=== PATIENT | female | born 1945 | race Caucasian/White ===

== ENCOUNTER → 2017-04-13 | Outpatient (CLI) | payer MEDICARE ==
[~2017-04-13] MED LIST: CENTTAB PO; COUM2.5T11 PO; LEVO25TA5 PO; OCUVTAB4 PO; PERC5TAB6 PO; PRESCAP PO; SIMV10TA2 PO; VITA400T2 PO; caltrate OR; systane OU
[2017-04-13 12:48] LABS: MEAN CORPUSCULAR HEMOGLOBIN 31.4 pg (27.0-33.0); MEAN CORPUSCULAR HGB CONC 34.7 g/dl (32.0-36.5); MEAN CORPUSCULAR VOLUME 90.5 fl (80.0-96.0)
--- NOTE | 2017-04-13 12:55 | REP ---
PA and lateral chest: Comparison 05/13/2016. The lung scott are clear. The cardiac size is normal The milton, mediastinum, and bony thorax are unremarkable. Impression: Negative PA and lateral chest. . There is no interval change. Signed by Dale Del Rio MD 04/13/2017 12:46 P
[2017-04-13 12:57] LABS: INR 0.99
[2017-04-13 13:47] LABS: ALBUMIN/GLOBULIN RATIO 1.11 (1.00-1.93); ALKALINE PHOSPHATASE 87 U/L (45-117); ALT/SGPT 75 U/L (12-78); ANION GAP 5 MEQ/L (8-16); AST/SGOT 51 U/L (15-37); BILIRUBIN,TOTAL 0.4 MG/DL (0.2-1.0); BLOOD UREA NITROGEN 9 MG/DL (7-18); CALCIUM LEVEL 10.5 MG/DL (8.8-10.2); CARBON DIOXIDE LEVEL 32 MEQ/L (21-32); CHLORIDE LEVEL 98 MEQ/L (98-107); CREATININE FOR GFR 0.74 MG/DL (0.55-1.02); GLOMERULAR FILTRATION RATE > 60.0 (>39); GLUCOSE, FASTING 235 MG/DL (83-110); POTASSIUM SERUM 4.2 MEQ/L (3.5-5.1); SODIUM LEVEL 135 MEQ/L (136-145); TOTAL PROTEIN 7.6 GM/DL (6.4-8.2)
--- NOTE | 2017-04-13 17:09 | ECGEPIP ---
Stationary ECG Study [facility] Test Date: 2017-04-13 Pat Name: RAUL CABRAL Department: Room: - Gender: F Summer Nanny: [facility] : 1945 Requested By: Bruno Ibanez Order Number: [id number] Reading MD: Rao Chang Measurements Intervals Rutledge Rate: 93 P: 51 SD: 161 QRS: -2 QRSD: 95 T: 31 QT: 326 QTc: 406 Interpretive Statements Normal sinus rhythm Left atrial enlargement Incomplete right bundle branch block Minor T-wave abnormalities No significant change since 04/27/2016 Electronically Signed On 04-13-2017 17:09:47 EDT by Rao Chang
== END ==
LOC: M ADMPAT 10:24
PROVIDERS: ATTEND Orthopaedic Surgery
DX: Z01.818 Encounter for other preprocedural examination (principal); M17.12 Unilateral primary osteoarthritis, left knee

== ENCOUNTER 2017-04-27 07:15 | Inpatient (IN) | payer MEDICARE ==
[2017-04-13 11:28] VITALS: BP 180/90
--- NOTE | 2017-04-25 13:14 | HPE ---
DATE OF ADMISSION: 04/27/2017 ATTENDING: Bruno Ibanez MD ADMISSION DIAGNOSIS: Osteoarthritis left knee. HISTORY: This is a pleasant 71-year-old female patient with progressively worsening left knee pain and stiffness. She has failed to improve with conservative management. She has elected for surgery for her continued symptoms. She has consented for a left total knee arthroplasty by Dr. Ibanez. X-rays of her left knee notable for end-stage degenerative changes of the left knee. ALLERGIES: LATEX. CURRENT MEDICATIONS: - Benadryl 25 mg two tablets by mouth as needed every 4 hours - Systane 0.4/0.0 3% two times per day. - levothyroxine 50 mcg one tablet once per day - Motrin as needed. She was counseled to discontinue that 5 days prior to surgery. - Zocor 10 mg one tablet once per day - aspirin 81 mg one tablet once per day. She also was told to discontinue that 5 days prior to surgery. - She also takes a daily multivitamin. MEDICAL HISTORY: Includes symptomatic osteoarthritis of the left knee, hypothyroidism, elevated cholesterol. PAST SURGICAL HISTORY: She has had a right total hip arthroplasty. SOCIAL HISTORY: She does not smoke. She does not use alcohol. FAMILY HISTORY: Noncontributory. REVIEW OF SYSTEMS: Denies fever or chills. Denies chest pain, shortness breath, or cough. Denies difficulty breathing. Denies abdominal pain. Denies nausea or vomiting. Denies recent upper respiratory infection (URI) or urinary tract infection (UTI) symptoms. Has persistent pain in her left knee with weightbearing activities. Examination today reveals an alert, well-nourished, well-developed female patient. She walks with a limping gait. She favors her left side. Examination of the left knee reveals skin to be intact. There is tenderness mainly along the medial joint line with some lateral and posterior tenderness, as well. The calf is soft, nontender to palpation. No irritability with hip range of motion. There is good knee range of motion with irritability at the extremes of range of motion. She can sensate light touch in the left leg. Is well-perfused left lower extremity. Neck is supple without adenopathy or jugular venous distention (JVD). Lungs are clear to auscultation without rales or wheeze. Heart: Regular rate and rhythm. Abdomen: Bowel sounds are present. Height 5 feet 11 inches, weight 219 pounds, temperature 97.9, blood pressure 144/89, pulse 80, respiration 18. LABORATORY DATA: WBC count of 11, RBC count of 4.5, hemoglobin 14.4, hematocrit 41.3. PT 13.2, INR 0.99. Her glucose is at 235, and her primary did mention that it was elevated but did not recommend treatment. BUN 9, creatinine 0.74. Sodium 135, potassium 4.2. Urinalysis had 1+ protein, trace leukocyte esterase, 3+ glucose, and she was treated by her urologist with a 10-day course of Bactrim that is due to be done in 2 days. Urine culture: No clinically significant growth. Nasal sinus cultures normal alvin. Chest x-ray: No acute cardiopulmonary disease process noted. Electrocardiogram (EKG) notable for a sinus rhythm. Sedimentation rate is 44. PLAN: She has consented for left total knee arthroplasty by Dr. Ibanez. DIAGNOSIS: Symptomatic osteoarthritis of the left knee.
[~2017-04-27] VITALS: Ht 147.3 cm; Wt 105.3 kg
[~2017-04-27 07:15] MED LIST changes: -COUM2.5T11 PO; +COUM2.5T17 PO; +PERC5TAB12 PO; -PERC5TAB6 PO
[2017-04-27] MEDS ORDERED: LR 1,000 ML IV SCH ×3 (07:30→13:45)
[2017-04-27] MEDS ORDERED: LR 1,000 ML IV ONE ×2 (07:30)
[2017-04-27] MEDS ORDERED: MIDAZOLAM INJ 2 MG/2 ML VIAL (J2250) As Ordered ONE ×2 (08:45→10:23)
[2017-04-27] MEDS ORDERED: fentaNYL 100 MCG/2 ML INJECTION (J3010) As Ordered ONE ×3 (08:45→11:20)
[2017-04-27] MEDS ORDERED: HumaLOG INSULIN (NovoLOG) PER UNIT As Ordered ONE ×2 (08:47→08:49)
[2017-04-27] MEDS ORDERED: HumaLOG INSULIN (NovoLOG) PER UNIT SC ONE (09:15)
[2017-04-27] MEDS ORDERED: TRANEXAMIC ACID 100 MG/ML 10ML VIAL As Ordered ONE (09:16)
[2017-04-27] MEDS ORDERED: ceFAZolin 1GM INJ (J0690) As Ordered ONE (09:17)
[2017-04-27] MEDS ORDERED: EPINEPHrine INJ 1 MG/ML 1ML AMP As Ordered ONE (09:17)
[2017-04-27] MEDS ORDERED: MIDAZOLAM INJ 2 MG/2 ML VIAL (J2250) IV ONE (09:30)
[2017-04-27] MEDS ORDERED: fentaNYL 100 MCG/2 ML INJECTION (J3010) IV ONE (09:30)
--- NOTE | 2017-04-27 09:52 | HPE ---
DATE OF ADMISSION: 04/27/2017 Patient seen and examined. She wished to go ahead with a left total knee arthroplasty. She understands the nature of this, the risk of bleeding, infection, damage to nerves, vessels, persistent pain, wear loosening, blood clots, medical problems, , among others. Preop medical clearance has been obtained.
[2017-04-27] MEDS ORDERED: BUPIVACAINE HCL 0.25% 30 ML VIAL As Ordered ONE (10:19)
[2017-04-27] MEDS ORDERED: LIDOCAINE 2% INJ 100 MG/5 ML SDV (FOR ANES.) As Ordered ONE (10:24)
[2017-04-27] MEDS ORDERED: ePHEDrine SULFATE 25 MG/5 ML(5MG/ML) SYRINGE As Ordered ONE (10:24)
[2017-04-27] MEDS ORDERED: PROPOFOL 200 MG/20 ML VIAL As Ordered ONE (10:24)
[2017-04-27] MEDS ORDERED: ROPIvacaine 0.5% 30 ML INJECTION (J2795) ONE (10:29)
[2017-04-27] MEDS ORDERED: dexameTHASONE 10 MG/1 ML VIAL PRES.FREE (J1100) ONE (10:29)
[2017-04-27] MEDS ORDERED: LIDOCAINE 1% MDV 20ML VIAL ONE (10:29)
[2017-04-27] MEDS ORDERED: HYDROmorphone HCL 1 MG/ML SYRINGE (J1170) IV PRN ×2 (11:45→13:45)
[2017-04-27] MEDS ORDERED: MORPHINE 1MG/ML IN 0.9% NACL 100ML IV BAG IV PRN (11:45)
[2017-04-27] MEDS ORDERED: ACETAMINOPHEN TAB 650MG DOSE (2X325MG) PO PRN (11:45)
[2017-04-27] MEDS ORDERED: FLEET ENEMA PR PRN (11:45)
[2017-04-27] MEDS ORDERED: PERCOCET 5MG/325MG TAB PO PRN ×2 (11:45→13:45)
[2017-04-27] MEDS ORDERED: PATIENT IS CURRENTLY ON AN ON-Q PAIN BUSTER PAIN RELIEF SYSTEM XX SCH (11:45)
[2017-04-27] MEDS ORDERED: diphenhydrAMINE INJ 50MG/ML VIAL (J1200) IV PRN (11:45)
[2017-04-27] MEDS ORDERED: fentaNYL 100 MCG/2 ML INJECTION (J3010) IV PRN ×2 (11:45→13:45)
[2017-04-27] MEDS ORDERED: NALBUPHINE HCL 10 MG/ML AMP (J2300) IV PRN (11:45)
[2017-04-27] MEDS ORDERED: EPIDURAL/PCA KEYS XX PRN (11:45)
[2017-04-27] MEDS ORDERED: NALOXONE INJ 0.4 MG/1 ML VIAL (J2310) IV PRN (11:45)
[2017-04-27] MEDS ORDERED: ONDANSETRON 4MG/2ML VIAL (J2405) IV PRN ×3 (11:45→13:45)
[2017-04-27 13:00] VITALS: BP 132/84
[2017-04-27 13:30] VITALS: BP 140/77
[2017-04-27 14:30] VITALS: BP 152/76
[2017-04-27 15:30] VITALS: BP 149/82
--- NOTE | 2017-04-27 16:20 | CR.PDOC ---
[facility] Consultation Consultation DATE OF CONSULTATION: 04/27/17 REFERRING PROVIDER: Santiago Luz M.D. ATTENDING PHYSICIAN: Dr. Ibanez REASON FOR CONSULTATION/CHIEF COMPLAINT: . Medical co-management HISTORY OF PRESENT ILLNESS: 71-year-old female with past medical history of dyslipidemia and hypothyroidism presents to [facility] for a left total knee replacement. At this time, the patient denies any acute complaints of fevers, chills, chest pain, shortness of breath, palpitations, abdominal pain, or any nausea/vomiting since diarrhea. The hospitalist service has been consulted for medical comanagement. ALLERGIES: Please see below. HOME MEDICATIONS: Please see below. PAST MEDICAL HISTORY: As noted above PAST SURGICAL HISTORY: Right total hip arthroplasty FAMILY HISTORY: Noncontributory SOCIAL HISTORY: Denies any alcohol, tobacco, or illicit drug use REVIEW OF SYSTEMS: 10 point review of systems negative unless otherwise specified in HPI PHYSICAL EXAMINATION: VITAL SIGNS: Please see below. GENERAL APPEARANCE: . Awake, alert, in no acute distress HEENT: . Normocephalic, atraumatic RESPIRATORY: . Clear to auscultation bilaterally CARDIOVASCULAR: . Normal rate, normal rhythm ABDOMEN: . Soft, nontender, nondistended EXTREMITIES: . Left knee noted to be wrapped in surgical dressing, range of motion limited secondary to recent surgery, neurovascularly intact distally LABORATORY DATA: Please see below. ASSESSMENT/PLAN: Status post left total knee replacement DVT prophylaxis and pain management as per primary team Hypothyroidism Continue levothyroxine Dyslipidemia Continue statin Vitamin D deficiency Continue vitamin D supplementation Vital Signs/I&O Vital Signs Date Time Temp Pulse Resp B/P (MAP) Pulse Ox O2 Delivery O2 Flow Rate FiO2 04/27/17 13:17 Nasal Cannula 2.0 04/27/17 13:11 16 04/27/17 12:25 86 156/87 (110) 04/27/17 12:21 96 04/27/17 12:10 97.4 04/27/17 11:01 100 Laboratory Data CBC/BMP Laboratory Tests 04/27/17 07:38 Allergies Coded Allergies: Unclassified Drugs (Verified Allergy, Intermediate, PRESERVATIVES- HIVES, 04/27/17) Latex (Unverified Allergy, Unknown, 05/11/16) Red Dye (Verified Adverse Reaction, Mild, CONTACT DERMATITIS, 04/13/17) Home Medications Scheduled (Preservision Areds) 1 Cap Cap, 1 CAP PO BID, (Reported) Cholecalciferol (Vitamin D) 400 Unit Tab, 200 UNIT PO DAILY, (Reported) Levothyroxine Sodium (Synthroid) 25 Mcg Tab, 50 MCG PO DAILY, (Reported) Multivitamins (Centrum Silver) 1 Tab Tab, 1 TAB PO DAILY, (Reported) Simvastatin (Simvastatin) 10 Mg Tab, 10 MG PO DAILY, (Reported) [caltrate] , 1 TAB OR DAILY, (Reported) SANTIAGO LUZ MD Apr 27, 2017 16:20
[2017-04-27 16:30] VITALS: BP 144/89
[2017-04-27] MEDS ORDERED: WARFARIN SOD 5 MG TAB PO SCH (17:00)
[2017-04-27] MEDS: LR 1,000 ML IV SCH ×2 (17:06→22:47)
[2017-04-27] MEDS: ONDANSETRON 4MG/2ML VIAL (J2405) IV PRN (19:04)
--- NOTE | 2017-04-27 20:22 | RO ---
DATE OF PROCEDURE: 04/27/2017 PREOPERATIVE DIAGNOSIS: Left knee osteoarthritis, obesity. POSTOPERATIVE DIAGNOSIS: Left knee osteoarthritis, obesity. PROCEDURE: Left total knee arthroplasty using a PFC rotating platform, size 2.5 femur, a size 2 tray, 12.5 polyethylene, 32 patellar button. SURGEON: Dr. Bruno Ibanez QUALITY ENG: Marco Antonio Pillai ANESTHESIA: Spinal. ESTIMATED BLOOD LOSS: Less than 50 mL. COMPLICATIONS: None. INDICATIONS: This is a 71-year-old woman who has had gradually worsening left knee pain. She wished to go ahead with surgical treatment, having failed conservative management. She understood the nature of the procedure, the risks of bleeding, infection, damage to nerves, vessels, persistent pain, wear, loosening, blood clots, medical problems, among others. DESCRIPTION OF PROCEDURE: The patient was taken to the operating room and placed in the supine position after spinal anesthesia was induced. The left lower extremity was prepped and draped in usual sterile fashion. Tourniquet was inflated. Time-out had been performed. I then created a longitudinal incision over the anterior aspect of the left knee. Sharp dissection was carried down through subcutaneous tissue. I then performed a medial parapatellar arthrotomy per routine, did a medial release and everted the patella, flexed the knee up. I did remove some of the fat pad for visualization. I then used the canal initiating reamer on the femoral side followed by the intramedullary guide set at 5 and 10 with 10 mm cut. This was pinned in place by the research lab assistant. I had also removed some bone spurs distally. We backed the cutting block off by 2 mm because her flexion contracture and the research lab assistant made the distal femoral cut in the usual fashion. I protected soft tissues. I sized the femur to be a 2.5. Drill holes were made in the end of the femur with the external rotation guide and then I pinned the 2.[address], made the remaining four cuts and removed excess bone. We then used the tibial alignment guide and placed the appropriate amount of posterior slope and valgus alignment in the tibia. This was pinned in place, and the guide I ended up setting at 12 mm off the high side, which after checking the alignment, I made the cut and took a very thin wafer off the medial side because she did have fairly deficient medial tibial plateau. I ended up having to slightly recut this because it was in a little bit valgus still, so I actually repinned the tibial tray in slightly less valgus, and I think part of it was the saw blade scythed on the medial side where it was so sclerotic. This provided excellent alignment and position of the cut. I then used a spacer to remove osteophytes from either side and soft tissue from either side of the knee, used the spacer block and the 12.5 seemed to have excellent alignment and stability in flexion and extension. I then sized the tibia to be a 2, drilled, broached and placed the trial components. The knee was put through a range of motion with a 12.5 polyethylene and excellent range of motion and stability were noted. I then freehand cut the patella removing about 4 mm of bone. It was pretty thin, but was able to preserve a good amount of thickness for the implant to be secured to. I then sized to be a 32, placed the drill holes, put the trial 32 patellar button on, put the knee through a range of motion and tracked very nicely and excellent stability and alignment noted. I then made the distal femoral holes with the drill. The research lab assistant prepared the bone cement in modern technique. I removed the instrumentation and irrigated the bony surfaces copiously, dried them carefully, cemented on the tibial tray, impacted it in place, removed excess bone cement, placed the polyethylene, cemented on the femoral component, removed excess bone cement and made sure that both components were well seated. Incidentally, the posterior cruciate ligament (PCL) was still intact throughout. The knee was brought out in extension. We cemented on the patellar component, held it in place until the bone cement hardened, having removed the excess bone cement. I then irrigated copiously, removed the patellar clamp and placed the TXA solution in the knee. I then closed the deep layer with some interrupted #1 Vicryl sutures and a running Stratafix suture in each direction with the research lab assistant helping. Watertight closure was noted. I irrigated, closed the subcu with #2-0 Vicryl and the skin with danielito. I inserted the PainBuster through the superolateral aspect of the knee in the usual fashion. Sterile dressing was applied. Tourniquet had been deflated. She was taken to recovery in stable condition. There were no known complications. The plan will be routine postop. The research lab assistant was instrumental in holding retractors, making one of the cuts, mixing the bone cement and wound closure. This case was coded as an unusually difficult case because the patient had morbid obesity with a body mass index (BMI) over 44, and this made the case significantly more challenging and took longer due to the size of her leg.
[2017-04-27 22:00] VITALS: BP 164/61
[2017-04-28 02:00] VITALS: BP 164/58
[2017-04-28] MEDS: LEVOTHYROXINE 50MCG TABLET (0.05MG) PO SCH (05:57)
[2017-04-28] MEDS: ONDANSETRON 4MG/2ML VIAL (J2405) IV PRN (05:57)
[2017-04-28 06:00] VITALS: BP 163/77
[2017-04-28 06:31] LABS: MEAN CORPUSCULAR VOLUME 91.6 fl (80.0-96.0); RED CELL DISTRIBUTION WIDTH 13.1 % (11.5-14.5); WHITE BLOOD COUNT 15.7 K/mm3 (4.0-10.0)
[2017-04-28 06:40] LABS: INR 1.73
[2017-04-28] MEDS ORDERED: ONDANSETRON 4 MG TAB (S0181) PO PRN (06:45)
[2017-04-28 07:49] LABS: ANION GAP 7 MEQ/L (8-16); BLOOD UREA NITROGEN 13 MG/DL (7-18); CALCIUM LEVEL 8.9 MG/DL (8.8-10.2); CARBON DIOXIDE LEVEL 30 MEQ/L (21-32); CHLORIDE LEVEL 101 MEQ/L (98-107); CREATININE FOR GFR 0.66 MG/DL (0.55-1.02); GLOMERULAR FILTRATION RATE > 60.0 (>39); GLUCOSE, FASTING 221 MG/DL (83-110); POTASSIUM SERUM 4.2 MEQ/L (3.5-5.1); SODIUM LEVEL 138 MEQ/L (136-145)
[2017-04-28] MEDS: traMADol 50 MG TAB PO PRN ×3 (07:57→21:08)
[2017-04-28] MEDS: MIRALAX *UNIT DOSE* 17GM PACKET PO SCH ×2 (07:59→09:00)
[2017-04-28] MEDS: MULTIVITAMINS/MINERALS THERAP 1 TAB PO SCH (07:59)
[2017-04-28] MEDS: MOM 30ML SUSPENSION UDC PO SCH (07:59)
[2017-04-28] MEDS: SENOKOT S TAB PO SCH ×2 (07:59→21:07)
[2017-04-28] MEDS: SIMVASTATIN 10 MG TAB PO SCH (07:59)
[2017-04-28] MEDS: VITAMIN D (CHOLECALCIFEROL) 400 INTERNATIONAL UNITS TAB PO SCH (08:00)
[2017-04-28] MEDS ORDERED: GLUCOSE 4 GM CHEW TABLET PO PRN (10:15)
[2017-04-28] MEDS ORDERED: DEXTROSE 50% 50 ML SYRINGE IV PRN (10:15)
[2017-04-28] MEDS ORDERED: GLUCAGON FOR INJ 1 MG VIAL (J1610) SC PRN (10:15)
[2017-04-28 14:00] VITALS: BP 147/63
--- NOTE | 2017-04-28 15:26 | IPNPDOC ---
Subjective Date Seen The patient was seen on 04/28/17. Subjective Chief Complaint/HPI The patient is a 71-year-old female admitted with a reason for visit of Arthritis Left Knee. General: Denies: Chills, Night Sweats Constitutional: Denies: Chills, Fever Eyes: Denies: Pain, Vision change ENT: Denies: Head Aches, Ear Pain Skin: Denies: Rash, Lesions Pulmonary: Denies: Dyspnea, Cough Cardiovascular: Denies: Chest Pain, Palpitations Gastrointestinal: Denies: Nausea, Vomiting Genitourinary: Denies: Dysuria, Frequency Hematologic: Denies: Bruising, Bleeding Excessively Musculoskeletal: Denies: Neck Pain, Back Pain Objective Physical Examination General Exam: Positive: Alert, Cooperative, No Acute Distress ENT Exam: Positive: Atraumatic, Mucous membr. moist/pink Neck Exam: Negative: JVD Chest Exam: Positive: Clear to auscultation, Normal air movement Heart Exam: Positive: Rate Normal, Normal S1, Normal S2 Abdomen Exam: Positive: Soft, Negative: Tenderness Extremity Exam: Positive: Other (Left knee noted to be wrapped in surgical dressing, range of motion limited secondary to recent surgery, neurovascularly intact distally) Assessment /Plan Plan/VTE VTE Prophylaxis Ordered?: Yes Plan Status post left total knee replacement DVT prophylaxis and pain management as per primary team Diabetes mellitus Hgb A1c noted to be 7.7% Insulin sliding scale Hypothyroidism Continue levothyroxine Dyslipidemia Continue statin Vitamin D deficiency Continue vitamin D supplementation VS, I&O, 24H, Fishbone Vital Signs/I&O Vital Signs Date Time Temp Pulse Resp B/P (MAP) Pulse Ox O2 Delivery O2 Flow Rate FiO2 04/28/17 15:00 18 04/28/17 08:00 Nasal Cannula 1.0 04/28/17 06:00 96.8 71 163/77 (105) 96 04/27/17 11:01 100 I&O- Last 24 Hours up to 6 AM 04/28/17 06:00 Intake Total 4495 ml Output Total 2650 ml Balance 1845 ml Laboratory Data 24H LABS Laboratory Tests 2 04/28/17 06:19: Prothrombin Time 20.3H, Prothromb Time International Ratio 1.73, Anion Gap 7L, Glomerular Filtration Rate > 60.0, Estimated Mean Plasma Glucose 174H, Hemoglobin A1c 7.7H, Blood Urea Nitrogen 13, Creatinine 0.66, Sodium Level 138, Potassium Level 4.2, Chloride Level 101, Carbon Dioxide Level 30, Calcium Level 8.9 CBC/BMP Laboratory Tests 04/28/17 06:19 Red Blood Count 3.71 L, Mean Corpuscular Volume 91.6, Mean Corpuscular Hemoglobin 32.0, Mean Corpuscular Hemoglobin Concent 35.0, Red Cell Distribution Width 13.1, Calcium Level 8.9 ENRIQUE LUZ MD Apr 28, 2017 15:26
--- NOTE | 2017-04-28 16:21 | REP ---
Clinical: Status post arthroplasty. Technique: AP and cross-table lateral views. Findings: The patient is status post left knee replacement with normal positioning and appearance to the femoral and tibial components. Overlying postsurgical changes appreciated. Impression: Satisfactory left knee replacement radiographs. Signed by Aneesh Medina MD 04/28/2017 09:53 A
[2017-04-28] MEDS ORDERED: WARFARIN SOD 5 MG TAB PO ONE (17:00)
[2017-04-28] MEDS: HumaLOG INSULIN (NovoLOG) PER UNIT SC SCH ×2 (17:39→21:00)
[2017-04-28 22:00] VITALS: BP 158/85
[2017-04-29] MEDS: traMADol 50 MG TAB PO PRN ×2 (04:11→12:41)
[2017-04-29] MEDS: LEVOTHYROXINE 50MCG TABLET (0.05MG) PO SCH (05:36)
[2017-04-29 06:00] VITALS: BP 153/64
[2017-04-29 06:32] LABS: MEAN CORPUSCULAR HEMOGLOBIN 31.4 pg (27.0-33.0); MEAN CORPUSCULAR HGB CONC 34.4 g/dl (32.0-36.5); MEAN CORPUSCULAR VOLUME 91.1 fl (80.0-96.0); RED CELL DISTRIBUTION WIDTH 13.2 % (11.5-14.5); WHITE BLOOD COUNT 14.2 K/mm3 (4.0-10.0)
[2017-04-29 06:41] LABS: INR 2.91
[2017-04-29] MEDS: HumaLOG INSULIN (NovoLOG) PER UNIT SC SCH ×4 (08:25→21:00)
[2017-04-29] MEDS ORDERED: CelecoXIB (CeleBREX) 100 MG CAP PO ONE (09:00)
[2017-04-29] MEDS: MORPHINE 15 MG SA TAB PO SCH ×2 (09:35→21:32)
[2017-04-29 09:40] VITALS: BP 155/72
[2017-04-29] MEDS: VITAMIN D (CHOLECALCIFEROL) 400 INTERNATIONAL UNITS TAB PO SCH (10:24)
[2017-04-29] MEDS: SIMVASTATIN 10 MG TAB PO SCH (10:24)
[2017-04-29] MEDS: MULTIVITAMINS/MINERALS THERAP 1 TAB PO SCH (10:24)
[2017-04-29] MEDS: MOM 30ML SUSPENSION UDC PO SCH (10:25)
[2017-04-29] MEDS: MIRALAX *UNIT DOSE* 17GM PACKET PO SCH (10:25)
[2017-04-29] MEDS: SENOKOT S TAB PO SCH ×2 (10:25→21:31)
--- NOTE | 2017-04-29 11:19 | IPNPDOC ---
Subjective Date Seen The patient was seen on 04/29/17. Subjective Chief Complaint/HPI The patient is a 71-year-old female admitted with a reason for visit of Arthritis Left Knee. General: Denies: Chills, Night Sweats Constitutional: Denies: Chills, Fever Eyes: Denies: Pain, Vision change ENT: Denies: Head Aches, Ear Pain Skin: Denies: Rash, Lesions Pulmonary: Denies: Dyspnea, Cough Cardiovascular: Denies: Chest Pain, Palpitations Gastrointestinal: Denies: Nausea, Vomiting Genitourinary: Denies: Dysuria, Frequency Hematologic: Denies: Bruising, Bleeding Excessively Objective Physical Examination General Exam: Positive: Alert, Cooperative, No Acute Distress ENT Exam: Positive: Atraumatic, Mucous membr. moist/pink Neck Exam: Negative: JVD Chest Exam: Positive: Clear to auscultation, Normal air movement Heart Exam: Positive: Rate Normal, Normal S1, Normal S2 Abdomen Exam: Positive: Soft, Negative: Tenderness Extremity Exam: Positive: Other (Left knee noted to be wrapped in surgical dressing, range of motion limited secondary to recent surgery, neurovascularly intact distally) Assessment /Plan Plan/VTE VTE Prophylaxis Ordered?: Yes Plan Status post left total knee replacement DVT prophylaxis and pain management as per primary team Diabetes mellitus Hgb A1c noted to be 7.7% Insulin sliding scale Hypothyroidism Continue levothyroxine Dyslipidemia Continue statin Vitamin D deficiency Continue vitamin D supplementation VS, I&O, 24H, Fishbone Vital Signs/I&O Vital Signs Date Time Temp Pulse Resp B/P (MAP) Pulse Ox O2 Delivery O2 Flow Rate FiO2 04/29/17 09:40 98.2 96 19 155/72 (99) 90 Room Air 04/29/17 06:00 2.0 04/27/17 11:01 100 I&O- Last 24 Hours up to 6 AM 04/29/17 06:00 Intake Total 1920 ml Balance 1920 ml Laboratory Data 24H LABS Laboratory Tests 2 04/28/17 12:40: Bedside Glucose (Misc Panel) 250H 04/28/17 16:57: Bedside Glucose (Misc Panel) 202H 04/28/17 23:08: Bedside Glucose (Misc Panel) 226H 04/29/17 05:48: Prothrombin Time 31.7H, Prothromb Time International Ratio 2.91 CBC/BMP Laboratory Tests 04/29/17 05:48 Red Blood Count 3.63 L, Mean Corpuscular Volume 91.1, Mean Corpuscular Hemoglobin 31.4, Mean Corpuscular Hemoglobin Concent 34.4, Red Cell Distribution Width 13.2 ENRIQUE LUZ MD Apr 29, 2017 11:19
[2017-04-29 14:00] VITALS: BP 163/79
[2017-04-29] MEDS ORDERED: NORTRIPTYLINE 10 MG CAP PO SCH (21:00)
[2017-04-29 22:00] VITALS: BP 171/76
[2017-04-30] MEDS ORDERED: ENTER DRUG NAME HERE (PATIENT'S OWN MED) TD SCH (01:00)
[2017-04-30] MEDS ORDERED: VICKS VAPOR RUB TD PRN (02:00)
[2017-04-30] MEDS: traMADol 50 MG TAB PO PRN ×2 (03:53→12:57)
[2017-04-30 06:00] VITALS: BP 144/74
[2017-04-30] MEDS: LEVOTHYROXINE 50MCG TABLET (0.05MG) PO SCH (06:28)
[2017-04-30 06:48] LABS: INR 1.97
[2017-04-30] MEDS ORDERED: MORP15TASA PO (07:36)
[2017-04-30] MEDS ORDERED: COUM2.5T17 PO (07:36)
[2017-04-30] MEDS ORDERED: TRAM50TA2 PO (07:36)
[2017-04-30] MEDS: MORPHINE 15 MG SA TAB PO SCH (07:58)
[2017-04-30] MEDS: VITAMIN D (CHOLECALCIFEROL) 400 INTERNATIONAL UNITS TAB PO SCH (07:58)
[2017-04-30] MEDS: SENOKOT S TAB PO SCH (07:59)
[2017-04-30] MEDS: HumaLOG INSULIN (NovoLOG) PER UNIT SC SCH ×2 (07:59→12:00)
[2017-04-30] MEDS: SIMVASTATIN 10 MG TAB PO SCH (07:59)
[2017-04-30] MEDS: MOM 30ML SUSPENSION UDC PO SCH (07:59)
[2017-04-30] MEDS: MULTIVITAMINS/MINERALS THERAP 1 TAB PO SCH (07:59)
[2017-04-30] MEDS: MIRALAX *UNIT DOSE* 17GM PACKET PO SCH (08:00)
--- NOTE | 2017-04-30 11:39 | IPNPDOC ---
Subjective Date Seen The patient was seen on 04/30/17. Subjective Chief Complaint/HPI The patient is a 71-year-old female admitted with a reason for visit of Arthritis Left Knee. General: Denies: Chills, Night Sweats Constitutional: Denies: Chills, Fever Eyes: Denies: Pain, Vision change ENT: Denies: Head Aches, Ear Pain Skin: Denies: Rash, Lesions Pulmonary: Denies: Dyspnea, Cough Cardiovascular: Denies: Chest Pain, Palpitations Gastrointestinal: Denies: Nausea, Vomiting Genitourinary: Denies: Dysuria, Frequency Hematologic: Denies: Bruising, Bleeding Excessively Objective Physical Examination General Exam: Positive: Alert, Cooperative, No Acute Distress ENT Exam: Positive: Atraumatic, Mucous membr. moist/pink Neck Exam: Negative: JVD Chest Exam: Positive: Clear to auscultation, Normal air movement Heart Exam: Positive: Rate Normal, Normal S1, Normal S2 Abdomen Exam: Positive: Soft, Negative: Tenderness Extremity Exam: Positive: Other (Left knee noted to be wrapped in surgical dressing, range of motion limited secondary to recent surgery, neurovascularly intact distally) Assessment /Plan Plan/VTE VTE Prophylaxis Ordered?: Yes Plan Status post left total knee replacement DVT prophylaxis and pain management as per primary team Diabetes mellitus Hgb A1c noted to be 7.7% Insulin sliding scale Hypothyroidism Continue levothyroxine Dyslipidemia Continue statin Vitamin D deficiency Continue vitamin D supplementation VS, I&O, 24H, Fishbone Vital Signs/I&O Vital Signs Date Time Temp Pulse Resp B/P (MAP) Pulse Ox O2 Delivery O2 Flow Rate FiO2 04/30/17 07:58 18 04/30/17 06:00 97.4 102 144/74 (97) 96 Room Air 04/29/17 06:00 2.0 04/27/17 11:01 100 I&O- Last 24 Hours up to 6 AM 04/30/17 06:00 Intake Total 2760 ml Balance 2760 ml Laboratory Data 24H LABS Laboratory Tests 2 04/29/17 12:01: Bedside Glucose (Misc Panel) 166H 04/29/17 16:40: Bedside Glucose (Misc Panel) 228H 04/29/17 20:40: Bedside Glucose (Misc Panel) 221H 04/30/17 06:11: Bedside Glucose (Misc Panel) 218H 04/30/17 06:20: Prothrombin Time 23.1H, Prothromb Time International Ratio 1.97 ENRIQUE LUZ MD Apr 30, 2017 11:39
--- NOTE | 2017-05-03 09:24 | DSES ---
DATE OF ADMISSION: 04/27/2017 DATE OF DISCHARGE: 04/30/2017 ADMISSION DIAGNOSIS: Symptomatic left knee osteoarthritis. DISCHARGE DIAGNOSIS: Status post left total knee arthroplasty. HISTORY OF PRESENT ILLNESS: This is a pleasant 71-year-old female with progressively worsening left knee pain, stiffness with osteoarthritis. She consented for a left total knee arthroplasty per Dr. Burno Ibanez. Medical optimization per primary care physician. X-rays consistent with advanced osteoarthritis. OPERATION PERFORMED: Left total knee arthroplasty. HOSPITAL COURSE: The patient underwent left total knee arthroplasty under spinal anesthesia, uneventfully and was returned to recovery comfortable. Our hospital team decided to discharge the patient on 04/30/2017 with the following instructions. Weightbearing as tolerated left lower extremity with a walker. Coumadin and Thromboembolic deterrent stockings (TEDS) times 30 days, Percocet p.r.n. pain, diet is regular, and Optifoam dressing change in 4-7 days. Followup at [facility] in 12-14 days for wound check, staple removal. The patient is encouraged to contact our office sooner with increased pain, numbness, tingling down the lower extremity, drainage, redness, fever greater than 101 or further concerns. ANGELA
== END 2017-04-30 13:25 | disposition home health service (06) | DRG 470 ==
LOC: M OR 07:15 → M MS5PR 13:00
PROVIDERS: ADMIT Orthopaedic Surgery; ATTEND Orthopaedic Surgery
PROC: 0SRD0J9 Replacement of Left Knee Joint with Synthetic Substitute, Cemented, Open Approach (ICD-10-PCS; principal; 2017-04-27 10:00)
DX: M17.12 Unilateral primary osteoarthritis, left knee (principal); Z68.42 Body mass index [BMI] 45.0-49.9, adult; Z91.040 Latex allergy status; Z79.82 Long term (current) use of aspirin; Z79.899 Other long term (current) drug therapy; E03.9 Hypothyroidism, unspecified; E78.5 Hyperlipidemia, unspecified; E55.9 Vitamin D deficiency, unspecified; Z88.8 Allergy status to other drugs, medicaments and biological substances; Z91.048 Other nonmedicinal substance allergy status; E66.01 Morbid (severe) obesity due to excess calories; E11.9 Type 2 diabetes mellitus without complications